=== PATIENT | male | born 1985 | race American Indian/Alaskan Native ===

== ENCOUNTER 2017-03-08 01:14 | Emergency (ER) | payer MEDICAID ==
[2017-03-08 02:40] LABS: Basophils % (Auto) 0.7 % (0.0-1.8); Eosinophils % (Auto) 0.9 % (0.0-4.3); Hematocrit 41.2 % (35.5-45.6); Hemoglobin 13.9 gm/dl (11.8-15.2); Mean Corpuscular HGB Conc 34 % (32-34); Mean Corpuscular Hemoglobin 31 pg (28-32); Mean Corpuscular Volume 92 fl (84-94); Platelet Count 359 K/mm3 (140-440); Red Blood Count 4.49 M/mm3 (3.65-5.03); Red Cell Distribution Width 13.5 % (13.2-15.2)
[2017-03-08 02:41] LABS: Alanine Aminotransferase 20 units/L (7-56); Albumin 4.4 g/dL (3.9-5); Albumin/Globulin Ratio 1.4 %; Alkaline Phosphatase 51 units/L (35-129); Anion Gap 22 mmol/L; BUN/Creatinine Ratio 18; Blood Urea Nitrogen 9 mg/dL (9-20); Calcium 9.4 mg/dL (8.4-10.2); Carbon Dioxide 20 mmol/L (22-30); Chloride 97.1 mmol/L (98-107); Glucose 104 mg/dL (75-100); Lipase 13 units/L (13-60); Potassium 3.8 mmol/L (3.6-5.0); Sodium 135 mmol/L (137-145); Total Protein 7.6 g/dL (6.3-8.2)
[2017-03-08] MEDS ORDERED: ZOFRAN IV ONE (07:19)
[2017-03-08] MEDS ORDERED: CARAFATE PO ONE (07:19)
[2017-03-08] MEDS ORDERED: PEPCID IV ONE (07:19)
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
[2017-03-08] MEDS ORDERED: PROTONIX IV ONE (08:00)
[2017-03-08] MEDS ORDERED: NACL 0.9% 1000 ML 2,000 ML IV ONE (08:05)
--- NOTE | 2017-03-08 08:51 | Cat Scan Report ---
CT ABDOMEN AND PELVIS WITH CONTRAST INDICATION: Abdominal pain, nausea, vomiting. COMPARISON: None similar. FINDINGS: Abdomen and pelvis CT performed following oral contrast and intravenous administration of 100 cc of Omnipaque 300. LUNG BASES: Top normal heart size. Right hemidiaphragm slightly elevated. No effusions. Nonspecific distal esophageal wall prominence/thickening, not excluded for gastroesophageal reflux and/or hiatal hernia, amongst others. ABDOMEN: Indeterminate 4 mm right hepatic hypodensity posterosuperiorly, axial image 17, series 2. Otherwise unremarkable liver, spleen, gallbladder, pancreas, adrenals, nonaneurysmal abdominal aorta, IVC and kidneys without hydronephrosis, ascites or size significant adenopathy except for a couple right lower quadrant mesenteric lymph nodes measuring up to 1.2 x 0.9 cm, axial series 2, image 42. Nonopacified GI tract evaluation limited, though grossly nonobstructive. Normal appendix. Mild to moderate colonic stool/possible constipation. PELVIS: Urinary bladder, seminal vesicles and prostate within normal limits. Moderate rectosigmoid stool and slight nonspecific perirectal fat stranding. No free fluid or significant adenopathy. Fatty infiltration of gluteus muscles incidentally noted, right more than left as also asymmetrically involving the right iliopsoas and proximal right thigh. Mild asymmetric right gluteal subcutaneous fat stranding as on axial image 58, series 2, presumed iatrogenic. Advanced T12-L1 degenerative changes with disc narrowing and endplate irregularities with sclerosis noted. CONCLUSION: No acute CT abnormality in this patient with various other findings as possible constipation, T12-L1 degenerative changes and altered weightbearing, amongst others, as detailed above. Please correlate. Thank you for the opportunity to participate in this patient's care.
[2017-03-08 09:13] LABS: Bacteria,Urine 1+ /HPF (Negative); Bilirubin,Urine NEG (Negative); Blood,Urine MOD (Negative); Ketones,Urine 20 mg/dL (Negative); Leukocyte Esterase,Urine MOD (Negative); Mucus,Urine 3+ /HPF; Nitrite,Urine NEG (Negative); Protein,Urine <15 mg/dL mg/dL (Negative)
--- NOTE | 2017-03-08 09:19 | XRay Report ---
CHEST ONE VIEW INDICATION: Cough, shortness of breath. COMPARISON: None similar. FINDINGS: Portable, single, frontal chest radiograph demonstrates normal cardiomediastinal silhouette. Clear lungs. Unremarkable bones. Right hemidiaphragm slightly elevated with some motion artifact. CONCLUSION: No acute disease in the chest. Thank you for the opportunity to participate in this patient's care.
[2017-03-08 11:33] VITALS: BP 114/72
== END 2017-03-08 11:33 | disposition home or self-care (01) ==
LOC: ED 01:14
DX: R10.84 Generalized abdominal pain (principal)
CPT/HCPCS: 36415; 71010; 74177; 80053; 81001; 82140; 82271; 82550; 83690; 85025; 93005; 93010; 96361; 96374; 96375; 99285; G0480; J2405; J7030; Q9967; 80320; C9113

== ENCOUNTER 2017-07-03 13:04 | Emergency (ER) | payer MEDICAID ==
[2017-07-03 13:14] VITALS: BP 133/50
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
--- NOTE | 2017-07-03 14:38 | XRay Report ---
Lumbar spine: Trauma, pain. AP and lateral views demonstrate normal alignment. There is good preservation of vertebral height. Mild traction spurs are present at T12-L1 level with narrowing of the interspace. The bones are well-mineralized. Impression: Degenerative T12-L1 changes. No acute findings. Thoracic spine: Trauma, pain. AP and lateral views demonstrates mild superior and inferior endplate compression of T8 and to a greater extent T9. The interspaces are generally preserved and there is no displacement. Comparison to a prior examination in 2015 demonstrates relatively minor compression changes at these levels. Impressions: The findings at T8 and T9 are most likely due to to progressive compression changes rather than recent trauma although the latter cannot be absolutely occluded. If there is strong clinical suspicion of an acute finding CT scan may be helpful.
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
== END 2017-07-03 15:00 | disposition home or self-care (01) ==
LOC: ED 13:04
DX: S22.069A Unspecified fracture of T7-T8 vertebra, initial encounter for closed fracture (principal); S22.079A Unspecified fracture of T9-T10 vertebra, initial encounter for closed fracture; G89.29 Other chronic pain; W01.0XXA Fall on same level from slipping, tripping and stumbling without subsequent striking against object, initial encounter; Y93.01 Activity, walking, marching and hiking; Y99.8 Other external cause status; Y92.89 Other specified places as the place of occurrence of the external cause
CPT/HCPCS: 72070; 72100; 99283

== ENCOUNTER 2017-11-18 12:37 | Emergency (ER) | payer MEDICAID ==
[2017-11-18 13:21] LABS: Basophils # (Auto) 0.1 K/mm3 (0.0-0.1); Basophils % (Auto) 0.9 % (0.0-1.8); Eosinophils # (Auto) 0.1 K/mm3 (0.0-0.4); Hematocrit 37.9 % (35.5-45.6); Hemoglobin 12.7 gm/dl (11.8-15.2); Lymphocytes # (Auto) 2.3 K/mm3 (1.2-5.4); Mean Corpuscular HGB Conc 34 % (32-34); Mean Corpuscular Hemoglobin 31 pg (28-32); Mean Corpuscular Volume 93 fl (84-94); Monocytes # (Auto) 0.9 K/mm3 (0.0-0.8); Platelet Count 309 K/mm3 (140-440); Red Blood Count 4.05 M/mm3 (3.65-5.03); Red Cell Distribution Width 14.4 % (13.2-15.2)
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
[2017-11-18 13:43] LABS: BUN/Creatinine Ratio 28; Blood Urea Nitrogen 17 mg/dL (9-20); Hemolysis Index 7
[2017-11-18] MEDS: HALDOL IM PRN (14:25)
[2017-11-18] MEDS: BENADRYL IM PRN (14:25)
[2017-11-18] MEDS: ATIVAN IM PRN (14:25)
[2017-11-19] MEDS: ATIVAN IM PRN ×3 (02:40→20:51)
[2017-11-19] MEDS: BENADRYL IM PRN ×3 (02:40→20:51)
[2017-11-19 03:04] LABS: Amphetamine Screen,Urine PRESUMPTIVE NEGATIVE; Cannabinoid Screen,Urine PRESUMPTIVE NEGATIVE; Cocaine Screen,Urine PRESUMPTIVE NEGATIVE; Methadone Screen,Urine PRESUMPTIVE NEGATIVE; Opiate Screen,Urine PRESUMPTIVE NEGATIVE
[2017-11-19 03:10] LABS: Bacteria,Urine 1+ /HPF (Negative); Bilirubin,Urine NEG (Negative); Blood,Urine NEG (Negative); Color,Urine Amber (Yellow); Mucus,Urine FEW /HPF
[2017-11-19 03:28] LABS: Benzodiazepines Screen,Urine PRESUMPTIVE POSITIVE
[2017-11-19] MEDS: HALDOL IM PRN (04:42)
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
[2017-11-19] MEDS: XANAX PO PRN ×2 (15:48→23:48)
[2017-11-19] MEDS: ZOLOFT PO SCH (15:48)
[2017-11-19] MEDS: NORCO 5/325 PO PRN (20:51)
[2017-11-20] MEDS: NORCO 5/325 PO PRN ×4 (04:15→22:30)
[2017-11-20] MEDS: XANAX PO PRN ×3 (07:51→22:25)
[2017-11-20] MEDS: ZOLOFT PO SCH (10:19)
--- NOTE | 2017-11-20 17:02 | Progress Note ---
Subjective - Reason for Consult Consult date: 11/20/17 Reason for consult: Psychiatric Follow-up Evaluation - Chief Complaint Chief complaint: "I don't feel good." Patient is a 32-year-old male who presents with a chief complaint of suicidal ideation and visual hallucinations. This patient is known to me. Today the patient is anxious during the assessment. He is requesting Percocet, Lyrica, and Baclofen. Currently Kittrell 5/325mg ( 2 tablets) [id number] in being used to manage pain. Also, patient reports that he takes Seroquel at home for mood/ sleep. Patient states that his depressed mood and anxiety is secondary to pain. He reports poor sleep with good appetite. Currently, he denies SI/HI, A/VH , and delusions. Mental Status Exam - Vital signs Last Vital Signs Temp 98.2 F 11/20/17 10:56 Pulse 82 11/20/17 10:56 Resp 16 11/20/17 10:56 BP 122/68 11/20/17 10:56 Pulse Ox 100 11/20/17 10:56 - Exam Narrative exam: Mental Status Exam General Appearance: Causally Dressed-hospital gown Eye Contact: Intermittent Orientation: Alert and oriented x 4 ( person, place, time, and situation) Attitude/Behavior: Cooperative Sensorium: Distracted Psychomotor & Musculoskeletal Activity: Ambulatory Mood: "Not good." Affect: Congruent with mood Speech/Language: Regular rate and tone Thought Processes: Circumstantial Thought Content: Reality oriented. Impoverished. Perception: Patient denies A/V/T hallucinations. Concentration/Attention: Impaired Suicidal Ideations/Plan: Patient denies. "No." Homicidal Ideations/Plan: Patient denies "No." Insight: Poor Judgment: Poor Assessment and Plan Impression: Hx of Depression/KARMA. Somatic Symptom DO. Today the patient is anxious during the assessment. He endorses depressed mood and anxiety. Currently , patient denies SI/HI, A/VH, and delusions. The patient is positive for benzos. DDx: R/O Bipolar DO Recommendation/Plan: 1. Continue 1013 with placement to inpatient psychiatric services. 2. Continue Zoloft 50 mg PO daily for depression/PTSD and Xanax 0.5 mg PO Q8hrs PRN for acute anxiety. Discussed possible suicidality/medication induced alejandra with patient reference Zoloft. Discussed generalized coping skills with patient. 3. Will continue to monitor mood, psychosis, sleep, appetite, compliance, and side effects. 4. If mood/sleep does not improve will recommend provider start Seroquel 50mgpo QHS for mood. 5. Discussed sleep hygiene.
[2017-11-20] MEDS: ATIVAN IM PRN (23:27)
[2017-11-21] MEDS: NORCO 5/325 PO PRN (06:00)
[2017-11-21] MEDS: XANAX PO PRN ×2 (08:34→20:31)
[2017-11-21] MEDS: ZOLOFT PO SCH (11:01)
--- NOTE | 2017-11-21 11:42 | Progress Note ---
Subjective - Reason for Consult Consult date: 11/21/17 Reason for consult: Psychiatry Follow-up - Chief Complaint Chief complaint: "I want medication for sleep" Patient is a 32-year-old male who presents with a chief complaint of suicidal ideation and visual hallucinations. This patient is known to me. Today the patient is calm during the assessment. He stated not sleeping last night. He stated that his pain is still "out of control." He denies SI/HI's and AVH's. He denies any side effects of his medications. Mental Status Exam - Vital signs Last Vital Signs Temp 98.0 F 11/20/17 20:14 Pulse 61 11/20/17 20:14 Resp 16 11/20/17 10:56 BP 100/66 11/20/17 20:14 Pulse Ox 98 11/20/17 20:14 Assessment and Plan Impression: Hx of Depression/KARMA/PTSD. Somatic Symptom DO. Today the patient is anxious during the assessment. The patient is positive for benzos. DDx; R/O Bipolar DO Recommendation/Plan: Continue 1013 with placement to inpatient psy services. Continue Zoloft 50 mg PO daily for depression/PTSD/Amxiety and Xanax 0.5 mg PO Q8hrs PRN for acute anxiety. Start Trazodone 50 mg PO HS PRN for sleep. Discussed possible suicidality/medication induced alejandra with patient reference antidepressants. Discussed generalized coping skills with patient. The patient will need a referral to a pain mgmt clinic when discharged.
[2017-11-21] MEDS ORDERED: DESYREL PO PRN (11:43)
[2017-11-21] MEDS ORDERED: LYRICA 25 MG, LYRICA 75 MG PO SCH (12:00)
[2017-11-21] MEDS: LYRICA PO SCH ×4 (13:09→22:26)
[2017-11-22] MEDS: NORCO 5/325 PO PRN (05:14)
[2017-11-22] MEDS: XANAX PO PRN (08:56)
[2017-11-22] MEDS: LYRICA PO SCH ×2 (11:25)
[2017-11-22] MEDS: ZOLOFT PO SCH (11:25)
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
[2017-11-22] MEDS ORDERED: XYLOCAINE 1% MPF 5 mL INFILTRATI ONE (12:48)
[2017-11-22] MEDS ORDERED: ROCEPHIN IM ONE ×2 (12:48→16:02)
--- NOTE | 2017-11-22 13:00 | Emergency Department Report ---
Blank Doc - Documentation Documentation: Patient was deemed ready for discharge by psychiatric nurse practitioner. He was referred to Dr. Khoury. I can only give the patient a very brief course of Ativan prior to being seen by Dr. Khoury. In addition his urinalysis on the as substantial pyuria. He is given IM ceftriaxone now. The urine is cultured. He is deemed appropriate for discharge because he has been asymptomatic and his vital signs are stable/he is afebrile.
[2017-11-22] MEDS ORDERED: XYLOCAINE 1% 20 mL ONE (16:02)
[2017-11-22 17:39] VITALS: BP 128/89
== END 2017-11-22 17:41 | disposition home or self-care (01) ==
LOC: ED 12:37 → EEVIPCON 12:37 → ED 11-22 17:41
DX: F32.9 Major depressive disorder, single episode, unspecified (principal); F17.200 Nicotine dependence, unspecified, uncomplicated
CPT/HCPCS: 36415; 80048; 80307; 81001; 85025; 87086; 96372; 99284; G0480; J0696; J1200; J1630; J2060; 80320; 99285

== ENCOUNTER 2017-12-21 18:27 | Emergency (ER) | payer MEDICAID ==
[2017-12-21 18:47] VITALS: BP 130/70
[2017-12-21 19:12] LABS: Basophils # (Auto) 0.1 K/mm3 (0.0-0.1); Basophils % (Auto) 0.8 % (0.0-1.8); Eosinophils # (Auto) 0.2 K/mm3 (0.0-0.4); Eosinophils % (Auto) 1.7 % (0.0-4.3); Hematocrit 34.4 % (35.5-45.6); Hemoglobin 11.6 gm/dl (11.8-15.2); Lymphocytes # (Auto) 2.4 K/mm3 (1.2-5.4); Lymphocytes % (Auto) 21.8 % (13.4-35.0); Mean Corpuscular HGB Conc 34 % (32-34); Mean Corpuscular Hemoglobin 31 pg (28-32); Mean Corpuscular Volume 93 fl (84-94); Monocytes # (Auto) 1.3 K/mm3 (0.0-0.8); Monocytes % (Auto) 11.5 % (0.0-7.3); Platelet Count 293 K/mm3 (140-440); Red Blood Count 3.72 M/mm3 (3.65-5.03); Red Cell Distribution Width 14.4 % (13.2-15.2)
[2017-12-21 19:31] LABS: Alanine Aminotransferase 18 units/L (7-56); Albumin 3.4 g/dL (3.9-5); BUN/Creatinine Ratio 25; Blood Urea Nitrogen 15 mg/dL (9-20); Calcium 8.4 mg/dL (8.4-10.2); Hemolysis Index 9
--- NOTE | 2017-12-21 19:51 | XRay Report ---
FINAL REPORT EXAM: XR FOOT 2V LT HISTORY: ulcers TECHNIQUE: 3 views Left foot PRIORS: None. FINDINGS: No fracture or dislocation identified. Joint spaces are within normal limits. No erosive bony change identified. No bony lesions are identified. IMPRESSION: Negative foot series
[2017-12-21] MEDS ORDERED: CLEOCIN PO ONE (21:53)
[2017-12-21] MEDS ORDERED: PERCOCET 5/325 PO ONE (21:53)
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
[2017-12-21] MEDS ORDERED: NYSTOP TP ONE (22:09)
[2017-12-21] MEDS ORDERED: THERMAZENE 50 GRAM TP ONE (22:09)
[2017-12-21 22:44] LABS: C-Reactive Protein 6.2 mg/dL (0.00-1.30)
== END 2017-12-22 | disposition home or self-care (01) ==
LOC: ED 18:27
DX: T25.332A Burn of third degree of left toe(s) (nail), initial encounter (principal); F17.200 Nicotine dependence, unspecified, uncomplicated; X11.8XXA Contact with other hot tap-water, initial encounter; Y93.89 Activity, other specified; Y92.89 Other specified places as the place of occurrence of the external cause; Y99.8 Other external cause status
CPT/HCPCS: 36415; 80053; 82550; 85025; 85652; 86140; 87040; 99284